=== PATIENT | female | born 1950 | race Caucasian/White ===

== ENCOUNTER 2016-05-31 08:00 | Outpatient (RCR) | payer MEDICARE ==
[2015-11-30 20:20] VITALS: BP 147/89
[~2016-05-31 08:00] MED LIST: AMLODIPINE5 MG PO; ANTIVERT PO; CLARITIN10 MG PO; DUO-KAPS1 CAP PO; FLAX SEED OIL1000 MG PO; KETOROLAC10 MG PO; LIQUID CAL-600600 MG PO; METFORMIN500 MG PO; METOPROLOL SUC100 M1 PO; NORCO 325 MG-51 TAB PO; NORFLEX100 MG PO; OSTEO-BI-FLEX 21 TAB PO; PRINIVIL20 MG PO; TYLENOL EXTRA500 M1 PO; VITAMIN C500 MG PO; VITAMIN D32000 IU PO
== END 2016-08-29 | disposition home or self-care (01) ==
LOC: CARDREHAB
DX: Z48.812 Encounter for surgical aftercare following surgery on the circulatory system (principal); Z98.61 Coronary angioplasty status; I25.10 Atherosclerotic heart disease of native coronary artery without angina pectoris; I20.0 Unstable angina; E78.5 Hyperlipidemia, unspecified; I10 Essential (primary) hypertension; Z82.49 Family history of ischemic heart disease and other diseases of the circulatory system

== ENCOUNTER → 2016-11-15 | Outpatient (CLI) | payer MEDICARE ==
[2015-11-30 20:20] VITALS: BP 147/89
== END ==
LOC: MAMMO 09:37
DX: Z12.31 Encounter for screening mammogram for malignant neoplasm of breast (principal)
CPT/HCPCS: G0202

== ENCOUNTER 2018-01-06 18:31 | Emergency (ER) | payer MEDICARE ==
[~2018-01-06] VITALS: Ht 167.6 cm; Wt 90.9 kg
[2018-01-06] MEDS ORDERED: PRINIVIL5 M1 PO (19:30)
[2018-01-06] MEDS ORDERED: AMLODIPINE BESY10 MG PO (19:31)
[2018-01-06] MEDS ORDERED: LOPRESSOR 550 MG/TAB PO (19:31)
[2018-01-06] MEDS ORDERED: MULTIVITAMIN1 SGL PO (19:32)
[2018-01-06] MEDS ORDERED: GLUCOPHAGE1000 MG PO (19:32)
[2018-01-06] MEDS ORDERED: CHILDREN'S ASPI81 M1 PO (19:32)
[2018-01-06] MEDS ORDERED: MAGNESIUM400 MG PO (19:33)
[2018-01-06] MEDS ORDERED: CALCIUM500 M1 PO (19:33)
[2018-01-06] MEDS ORDERED: ZINC30 M1 PO (19:34)
[2018-01-06] MEDS ORDERED: FLAX OIL1000 M1 PO (19:35)
[2018-01-06] MEDS ORDERED: FISH OIL 500 M1 EAC1 PO (19:35)
[2018-01-06] MEDS ORDERED: NATURE'S BLEND500 M1 PO (19:36)
[2018-01-06] MEDS ORDERED: MASON NATURAL500 MG PO (19:36)
[2018-01-06] MEDS ORDERED: FLAXSEED OIL1000 MG PO (19:38)
[2018-01-06] MEDS ORDERED: LANTUS SOLOS100 U/ML SQ (19:52)
[2018-01-06 20:12] LABS: EOS # 0.1 (0.04-0.40); EOS % 1.4 % (1.0-5.0); HEMATOCRIT 40.1 % (37.0-47.0); LYMPH# 1.7 (1.50-4.00); MEAN CELL VOLUME 86 fl (78-100); MEAN CORPUSCULAR HEMOGLOBIN 28 pg (27-31); MEAN CORPUSCULAR HGB CONC 32 g/dL (33-37); MEAN PLATELET VOLUME 10.6 fl (7.4-10.4); MONO # 0.8 (0.20-0.80); NEU # 7.5 (1.40-6.50); PLATELET COUNT 268 K/mm3 (130-400); RED BLOOD COUNT 4.64 M/mm3 (4.10-5.30); RED CELL DISTRIBUTION WIDTH 13.9 % (11.5-14.5); WHITE BLOOD COUNT 10.1 K/mm3 (4.8-10.8)
[2018-01-06 20:20] LABS: CALCIUM 8.9 mg/dL (8.4-10.2); POTASSIUM 4.1 mmol/L (3.6-5.0)
[2018-01-06] MEDS ORDERED: NORCO 325 MG-51 TA1 PO (20:42)
[2018-01-06 20:50] VITALS: BP 126/81
== END 2018-01-06 20:50 | disposition home or self-care (01) ==
LOC: ED 18:31
PROVIDERS: Family Medicine
DX: R07.89 Other chest pain (principal); I25.10 Atherosclerotic heart disease of native coronary artery without angina pectoris; I10 Essential (primary) hypertension; E11.9 Type 2 diabetes mellitus without complications; Z95.1 Presence of aortocoronary bypass graft; Z79.899 Other long term (current) drug therapy; Z79.82 Long term (current) use of aspirin; Z79.4 Long term (current) use of insulin; M79.7 Fibromyalgia
CPT/HCPCS: J1885

== ENCOUNTER → 2020-10-26 | Outpatient (CLI) | payer MEDICARE ==
[~2020-10-26] MED LIST changes: +AMLODIPINE BESY10 MG PO; +CALCIUM500 M1 PO; +CHILDREN'S ASPI81 M1 PO; +FISH OIL 500 M1 EAC1 PO; +FLAX OIL1000 M1 PO; +FLAXSEED OIL1000 MG PO; +GLUCOPHAGE1000 MG PO; +LANTUS SOLOS100 U/ML SQ; +LOPRESSOR 550 MG/TAB PO; +MAGNESIUM400 MG PO; +MASON NATURAL500 MG PO; +MULTIVITAMIN1 SGL PO; +NATURE'S BLEND500 M1 PO; +NORCO 325 MG-51 TA1 PO; +PRINIVIL5 M1 PO; +ZINC30 M1 PO
== END ==
LOC: VAS 14:21 → RAD 14:30
DX: R06.02 Shortness of breath (principal)

== ENCOUNTER → 2021-11-01 | Outpatient (CLI) | payer MEDICARE, MEDICAID | LOC: MAMMO 13:02 | DX: Z12.31 Encounter for screening mammogram for malignant neoplasm of breast (principal) ==

== ENCOUNTER 2024-06-11 22:03 | Emergency (ER) | payer MEDICARE, MEDICAID ==
[~2024-06-11] VITALS: Ht 165.1 cm; Wt 95.5 kg
[2024-06-11 23:49] VITALS: BP 171/78
== END 2024-06-11 23:49 | disposition home or self-care (01) ==
LOC: ED 22:03
DX: M96.831 Postprocedural hemorrhage of a musculoskeletal structure following other procedure (principal); Z79.82 Long term (current) use of aspirin